=== PATIENT | female | born 1965 | race Asian ===

== ENCOUNTER 2017-09-13 09:59 | Emergency (ER) | payer OTHER ==
[2017-09-13] MEDS ORDERED: PROPARACAINE 0.5% OPHTH DROPS 15 ML RIGHTEYE STA (12:05)
--- NOTE | 2017-09-13 12:12 | ED Physician Documentation ---
PD HPI OPHTHO - Stated complaint Stated Complaint: R EYE REDNESS - Chief complaint Chief Complaint: Heent - History obtained from History obtained from: Patient - History of Present Illness Timing - onset: Other (Itchy eye on the right with redness since this morning but not much discharge. She does not wear contacts. Vision is unaffected. No URI symptoms.) Review of Systems Constitutional: denies: Fever, Chills Throat: reports: Reviewed and negative Cardiac: reports: Reviewed and negative Respiratory: reports: Reviewed and negative PD PAST MEDICAL HISTORY - Past Medical History Past Medical History: Yes Other Past Medical History: insomnia - Past Surgical History Past Surgical History: No - Present Medications Home Medications: Ambulatory Orders Medication Instructions Recorded Confirmed Zolpidem Tartrate [Ambien] 5 mg PO DAILY 01/09/15 09/13/17 Erythromycin Base [Erythromycin] 1 applic OP 5XD 7 Days oint...g. 09/13/17 - Allergies Allergies/Adverse Reactions: Allergies Allergy/AdvReac Type Severity Reaction Status Date / Time No Known Drug Allergies Allergy Verified 09/13/17 10:06 - Social History Does the pt smoke?: No Smoking Status: Never smoker Does the pt drink ETOH?: No Does the pt have substance abuse?: No - Immunizations Immunizations are current?: Yes PD ED PE NORMAL - Vitals Vital signs reviewed: Yes - General General: Alert and oriented X 3, No acute distress - HEENT HEENT: Other (Mild redness of the right conjunctiva, globes are soft, pupils equally round and reactive, extraocular movements are intact. 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 Eye Opening: Spontaneous Motor: Obeys Commands Verbal: Oriented GCS Score: 15 Results - Vitals Vitals: Vital Signs - 24 hr 09/13/17 10:01 Temperature 35.5 C L Heart Rate 75 Respiratory 18 Rate Blood Pressure 99/59 L O2 Saturation 100 Oxygen O2 Source Room air Departure - Departure Disposition: 01 Home, Self Care Clinical Impression: Viral conjunctivitis of right eye Condition: Good Record reviewed to determine appropriate education?: Yes Instructions: ED Conjunctivitis Nonspecific Follow-Up: Aaron Montez MD [Provider Admit Priv/Credential] - (3-5 days if not better ) Prescriptions: Erythromycin Base [Erythromycin] 1 applic OP 5XD 7 Days oint...g.
[2017-09-13 12:25] VITALS: BP 132/60
== END 2017-09-13 12:23 | disposition home or self-care (01) ==
LOC: ED 09:59
DX: B30.9 Viral conjunctivitis, unspecified (principal)
CPT/HCPCS: 99283; J3490